=== PATIENT | female | born 1965 | race Caucasian/White ===

== ENCOUNTER 2017-05-31 22:00 | Emergency (ER) | payer BC ==
[2017-05-31 22:18] VITALS: BP 130/84
[2017-05-31] MEDS ORDERED: Lidocaine 1% 20 ML MDV INJECT ONE (22:22)
[2017-05-31] MEDS ORDERED: cefTRIAXone 1 GM Vial IM ONE (22:22)
[2017-05-31] MEDS ORDERED: Ketorolac 60 MG/2 ML SDV IM ONE (22:22)
--- NOTE | 2017-05-31 22:27 | EDM.PDOC ---
ED HPI GENERAL MEDICAL PROBLEM - General Chief Complaint: General Stated Complaint: LEFT EAR PAIN Time Seen by Provider: 05/31/17 22:20 Source of Information: Reports: Patient History Limitations: Reports: No Limitations - History of Present Illness INITIAL COMMENTS - FREE TEXT/NARRATIVE: Patient presents to the ER with complaints of left ear pain. States has been bothering her all day but worsened this evening. Has had sinus symptoms now for several days, actually took 2 zithromax tabs earlier today. Admits to drinking alcohol this evening trying to dull the pain. Has not had any fevers. No TMJ. Was having some pain a few weeks ago in her lower jaw/teeth but the dentist did not find any concerns. She now wonders if it was underlying sinus problems starting back then. She did try some Cipro otic drops today but that hasn't helped. 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: Other (see below) Other Treatments GREEN CHAIN MARKER: ear drops Left Ear Pain Score (Numeric/FACES): 6 - Related Data Allergies Allergy/AdvReac Type Severity Reaction Status Date / Time Sulfa (Sulfonamide Allergy Rash Verified 05/31/17 22:05 Antibiotics) Home Meds: Home Meds Sertraline [Zoloft] 50 mg PO DAILY 05/31/17 [History] Past Medical History Psychiatric History: Reports: Depression - Past Surgical History HEENT Surgical History: Reports: Tonsillectomy Female Surgical History: Reports: Hysterectomy Social & Family History - Family History Family Medical History: Noncontributory - Tobacco Use Smoking Status *Q: Never Smoker ED ROS GENERAL - Review of Systems Review Of Systems: See Below Constitutional: Denies: Fever, Chills, Malaise, Weakness, Decreased Appetite HEENT: Reports: Ear Pain, Sinus Problem. Denies: Ear Discharge, Throat Pain, Throat Swelling, Vertigo Respiratory: Denies: Shortness of Breath, Wheezing, Cough Cardiovascular: Denies: Chest Pain, Edema, Lightheadedness Endocrine: Denies: Fatigue GI/Abdominal: Denies: Abdominal Pain, Nausea, Vomiting : Reports: No Symptoms Musculoskeletal: Reports: No Symptoms Skin: Reports: No Symptoms Neurological: Reports: No Symptoms ED EXAM, GENERAL - Physical Exam Exam: See Below Exam Limited By: No Limitations General Appearance: Alert, WD/WN, No Apparent Distress Ears: Normal External Exam, Other (Left otitis media; right serous effusion) Ear Exam: Left Ear: TM Red Nose: Normal Inspection, Normal Mucosa, Nasal Drainage, Other (bilateral maxillary sinus tenderness) Throat/Mouth: Normal Inspection, Normal Oropharynx Head: Normocephalic Neck: Normal Inspection, Supple, Non-Tender Respiratory/Chest: No Respiratory Distress, Lungs Clear, Normal Breath Sounds Cardiovascular: Regular Rate, Rhythm Course - Vital Signs Last Recorded V/S: Last Vital Signs Temp 98.2 F 05/31/17 22:15 Pulse 77 05/31/17 22:15 Resp 20 05/31/17 22:15 BP 130/84 05/31/17 22:15 Pulse Ox Departure - Departure Time of Disposition: 22:32 Disposition: Home, Self-Care 01 Condition: Good Clinical Impression: Left otitis media Qualifiers: Chronicity: acute - Discharge Information Referrals: Provider,Unknown [Primary Care Provider] - Additional Instructions: 1. Rest 2. Push fluids 3. Alternate tylenol with ibuprofen for discomfort 4. Ceftin 250 mg twice a day for 10 days 5. Follow up if any ongoing concern
== END 2017-05-31 22:45 | disposition home or self-care (01) ==
LOC: CC.ED 22:00
DX: H66.92 Otitis media, unspecified, left ear (principal); H65.91 Unspecified nonsuppurative otitis media, right ear; F32.9 Major depressive disorder, single episode, unspecified; Z88.2 Allergy status to sulfonamides; Z79.899 Other long term (current) drug therapy; Z90.710 Acquired absence of both cervix and uterus; Z98.890 Other specified postprocedural states
CPT/HCPCS: 96372; 99282; J0696; J1885

== ENCOUNTER → 2023-07-05 | Day surgery (SDC) | payer BC ==
[~2023-07-05] MED LIST: Ketamine 200 MG/20 ML MDV ONE; Propofol 200 MG/20 ML SDV ONE; fentaNYL 50 MCG/ML SDV ONE
[2023-07-05] MEDS: Lactated Ringers 1,000 ML IV SCH (08:42)
[2023-07-05 11:28] VITALS: BP 139/83; PULSE 68
== END ==
LOC: CC.SDS 08:25
PROVIDERS: ATTEND Surgery
DX: Z12.11 Encounter for screening for malignant neoplasm of colon (principal); J30.9 Allergic rhinitis, unspecified; G47.00 Insomnia, unspecified; F32.A Depression, unspecified; N95.2 Postmenopausal atrophic vaginitis; E66.9 Obesity, unspecified; Z88.2 Allergy status to sulfonamides; Z79.899 Other long term (current) drug therapy; Z68.31 Body mass index [BMI] 31.0-31.9, adult
CPT/HCPCS: J2704; J3010; J3490; J7120

== ENCOUNTER 2024-11-16 09:06 | Emergency (ER) | payer BC ==
[2024-11-16] MEDS: Erythromycin Base 0.5% Ophth Oint 3.5 GM Tube EYEBOTH ONE (10:06)
[2024-11-16] MEDS: methylPREDNISolone Acetate 80 MG/ML SDV IM ONE (10:13)
[2024-11-16 12:02] VITALS: BP 132/80; PULSE 72
== END 2024-11-16 11:00 | disposition home or self-care (01) ==
LOC: CC.ED 09:06
DX: J06.9 Acute upper respiratory infection, unspecified (principal); B97.89 Other viral agents as the cause of diseases classified elsewhere; H10.33 Unspecified acute conjunctivitis, bilateral; Z88.2 Allergy status to sulfonamides; Z79.899 Other long term (current) drug therapy; Z90.710 Acquired absence of both cervix and uterus
CPT/HCPCS: 87428-QW; 96372; 99283; J1010